=== PATIENT | male | born 1980 | race Two or more races ===

== ENCOUNTER 2018-01-21 01:08 | Emergency (ER) | payer SELFPAY ==
[2018-01-21 01:16] VITALS: BMI 31.9
[2018-01-21 01:20] VITALS: BP 142/91; PULSE 117; RESP 16; TEMP 98.2; O2SAT 98
[2018-01-21] MEDS ORDERED: Tdap Vaccine 0.5 ml Vial (10-64 yrs) IM ONE (01:44)
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
== END 2018-01-21 06:25 | disposition home or self-care (01) ==
LOC: H.ER 01:08
DX: F10.129 Alcohol abuse with intoxication, unspecified (principal); S09.90XA Unspecified injury of head, initial encounter; S09.93XA Unspecified injury of face, initial encounter; Y04.0XXA Assault by unarmed brawl or fight, initial encounter; Y92.89 Other specified places as the place of occurrence of the external cause
CPT/HCPCS: 70450; 70486; 82948; 99285; G0480